=== PATIENT | male | born 1975 | race Two or more races ===

== ENCOUNTER 2017-03-05 09:30 | Emergency (ER) | payer OTHER ==
[2017-03-05 09:37] VITALS: BP 136/82; PULSE 66; TEMP 98.2; BMI 21.2
[2017-03-05] MEDS ORDERED: IBUPROFEN 600 MG TABLET (FP) PO ONE ×2 (11:34→11:42)
--- NOTE | 2017-03-05 11:38 | PDOC ---
History of Present Illness - General Chief Complaint: Back Pain Stated Complaint: BACK PAIN Time Seen by Provider: 03/05/17 10:50 History Source: Patient - History of Present Illness Initial Comments: 03/05/17 11:35 41 year male c/o lower back pain after lifting heavy ceramic plates. patient reports pain to back is worse with walking stairs. denies numbness and tingling to lower extremity and incontinence of bowel and urine. No midline tenderness. Past History - Past Medical History Allergies/Adverse Reactions: Allergies Allergy/AdvReac Type Severity Reaction Status Date / Time No Known Allergies Allergy Verified 03/05/17 09:37 Home Medications: Ambulatory Orders Cyclobenzaprine HCl [Flexeril 10 mg] 10 mg PO TID PRN #14 tablet 03/05/17 Ibuprofen 600 mg PO QID PRN #20 tablet 03/05/17 Other medical history: PATIENT DENIES MEDICAL HX - Psycho/Social/Smoking Cessation Hx Anxiety: No Suicidal Ideation: No Smoking Status: No Smoking History: Never smoked Number of Cigarettes Smoked Daily: 0 Hx Alcohol Use: No Drug/Substance Use Hx: No Review of Systems - Review of Systems Musculoskeletal: Yes: Back Pain *Physical Exam - Vital Signs Last Vital Signs Temp Pulse Resp BP Pulse Ox 98.2 F 66 18 136/82 100 03/05/17 09:34 03/05/17 09:34 03/05/17 09:34 03/05/17 09:34 03/05/17 09:34 - Physical Exam General Appearance: Yes: Appropriately Dressed Respiratory/Chest: positive: Lungs Clear, Normal Breath Sounds Gastrointestinal/Abdominal: positive: Normal Bowel Sounds, Soft Musculoskeletal: positive: Normal Inspection, Muscle Spasm (b/l lower back tenderness to palpation and pain with movement. no midline tenderness). negative: Vertebral Tenderness Extremity: positive: Normal Capillary Refill, Normal Inspection, Normal Range of Motion, Pelvis Stable Integumentary: positive: Normal Color, Dry, Warm Neurologic: positive: Fully Oriented, Alert, Abnormal Cranial NS Progress Note - Progress Note Progress Note: A: musculoskeletal pain P: Flexeril NSAIDS strict return precautions and close PCP monitoring discussed with patient. *DC/Admit/Observation/Transfer Diagnosis at time of Disposition: Musculoskeletal pain - Discharge Dispostion Disposition: HOME - Prescriptions Prescriptions: Cyclobenzaprine HCl [Flexeril 10 mg] 10 mg PO TID PRN #14 tablet PRN Reason: Muscle Spasms Ibuprofen 600 mg PO QID PRN #20 tablet PRN Reason: Back Pain - Referrals Referrals: Samuel Urbina MD [Primary Care Provider] - 2 Days - Patient Instructions Printed Discharge Instructions: DI for Musculoskeletal Pain Additional Instructions: apply ice/ heat to the area. take ibuprofen with food every 6 hours as needed for pain take Flexeril as prescribed. Flexeril can make you sleepy. do not drive or operate heavy machinery after taking this. follow up with your doctor in 1-2 days. return to the ER if symptoms worsen. - Post Discharge Activity Work/School Note: Back to Work
== END 2017-03-05 11:55 | disposition home or self-care (01) ==
LOC: JERFT 09:30
DX: M54.5 Low back pain (principal); X50.0XXA Overexertion from strenuous movement or load, initial encounter; Y93.89 Activity, other specified; Y92.89 Other specified places as the place of occurrence of the external cause
CPT/HCPCS: 99281-25